=== PATIENT | female | born 1985 | race Caucasian/White ===

== ENCOUNTER 2019-01-05 14:46 | Emergency (ER) | payer BC ==
--- NOTE | 2019-01-05 15:15 | EDM.PDOC ---
ED HPI GENERAL MEDICAL PROBLEM - General Chief Complaint: Skin Complaint Stated Complaint: REACTION/SWELLING FROM MOSQUITO BITES Time Seen by Provider: 01/05/19 15:13 Source of Information: Reports: Patient - History of Present Illness INITIAL COMMENTS - FREE TEXT/NARRATIVE: HISTORY AND PHYSICAL: History of present illness: []Patient presents with multiple mosquito bites throughout the summer she is recently been on prednisone for itching and now is using Benadryl Lip swelling tongue swelling or oral pharyngeal edema no fever nausea vomiting chills sweats Review of systems: As per history of present illness and below otherwise all systems reviewed and negative. Past medical history: As per history of present illness and as reviewed below otherwise noncontributory. Surgical history: As per history of present illness and as reviewed below otherwise noncontributory. Social history: No reported history of drug or alcohol abuse. Family history: As per history of present illness and as reviewed below otherwise noncontributory. Physical exam: HEENT: Atraumatic, normocephalic, pupils reactive, negative for conjunctival pallor or scleral icterus, mucous membranes moist, throat clear, neck supple, nontender, trachea midline. Lungs: Clear to auscultation, breath sounds equal bilaterally, chest nontender. Heart: S1S2, regular, negative for clicks, rubs, or JVD. Abdomen: Soft, nondistended, nontender. Negative for masses or hepatosplenomegaly. Negative for costovertebral tenderness. Pelvis: Stable nontender. Genitourinary: Deferred. Rectal: Deferred. Extremities: Atraumatic, negative for cords or calf pain. Neurovascular unremarkable. Neuro: Awake, alert, oriented. Cranial nerves II through XII unremarkable. Cerebellum unremarkable. Motor and sensory unremarkable throughout. Exam nonfocal. Diagnostics: [Clinical ] Therapeutics: Benadryl Zantac ] did mention methods discussed long close, deet, spraying her yard etc. preventative methods Impression: [Mosquito bite ] Definitive disposition and diagnosis as appropriate pending reevaluation and review of above. - Related Data Allergies Allergy/AdvReac Type Severity Reaction Status Date / Time Penicillins Allergy Cannot Verified 07/04/14 07:28 Remember Home Meds: Home Meds . [No Known Home Meds] 07/04/14 [History] ED ROS GENERAL - Review of Systems Review Of Systems: See Below ED EXAM, SKIN/RASH Exam: See Below Departure - Departure Time of Disposition: 15:15 Disposition: Home, Self-Care 01 Condition: Good Clinical Impression: Mosquito bite - Discharge Information Referrals: Donna Kahn, [facility] [Primary Care Provider] - Additional Instructions: The following information is given to patients seen in the emergency department who are being discharged to home. This information is to outline your options for follow-up care. We provide all patients seen in our emergency department with a follow-up referral. The need for follow-up, as well as the timing and circumstances, are variable depending upon the specifics of your emergency department visit. If you don't have a primary care physician on staff, we will provide you with a referral. We always advise you to contact your personal physician following an emergency department visit to inform them of the circumstance of the visit and for follow-up with them and/or the need for any referrals to a consulting specialist. The emergency department will also refer you to a specialist when appropriate. This referral assures that you have the opportunity for follow-up care with a specialist. All of these measure are taken in an effort to provide you with optimal care, which includes your follow-up. Under all circumstances we always encourage you to contact your private physician who remains a resource for coordinating your care. When calling for follow-up care, please make the office aware that this follow-up is from your recent emergency room visit. If for any reason you are refused follow-up, please contact the [facility] emergency department at and asked to speak to the emergency department charge nurse.
[2019-01-05 17:05] VITALS: BP 119/71
== END 2019-01-05 15:30 | disposition home or self-care (01) ==
LOC: MW.ED 14:46
DX: S40.862A Insect bite (nonvenomous) of left upper arm, initial encounter (principal); S40.861A Insect bite (nonvenomous) of right upper arm, initial encounter; W57.XXXA Bitten or stung by nonvenomous insect and other nonvenomous arthropods, initial encounter
CPT/HCPCS: 99281

== ENCOUNTER 2021-10-15 15:51 | Emergency (ER) | payer BC, OTHER ==
[2021-10-15] MEDS ORDERED: Cyclobenzaprine 10 MG Tab PO ONE (17:51)
[2021-10-15] MEDS ORDERED: Ketorolac 30 MG/ML SDV IM STA (17:51)
[2021-10-15 18:09] VITALS: BP 114/74; PULSE 79
== END 2021-10-15 19:09 | disposition home or self-care (01) ==
LOC: MW.ED 15:51
DX: S39.012A Strain of muscle, fascia and tendon of lower back, initial encounter (principal); Z88.0 Allergy status to penicillin; Z91.040 Latex allergy status; Z79.899 Other long term (current) drug therapy; X50.1XXA Overexertion from prolonged static or awkward postures, initial encounter
CPT/HCPCS: 81003; 81025; 96372; 99283; A9270; J1885

== ENCOUNTER 2021-12-22 17:40 | Emergency (ER) | payer OTHER ==
[2021-12-22] MEDS ORDERED: Acetaminophen/HYDROcodone 325-5 MG Tab PO ONE (18:53)
[2021-12-22 20:50] VITALS: BP 123/72; PULSE 77
== END 2021-12-22 20:50 | disposition home or self-care (01) ==
LOC: MW.ED 17:40
DX: S93.401A Sprain of unspecified ligament of right ankle, initial encounter (principal); S76.912A Strain of unspecified muscles, fascia and tendons at thigh level, left thigh, initial encounter; F17.210 Nicotine dependence, cigarettes, uncomplicated; Z91.040 Latex allergy status; Z88.0 Allergy status to penicillin; X50.1XXA Overexertion from prolonged static or awkward postures, initial encounter
CPT/HCPCS: 73552; 73610; 99283; A9270

== ENCOUNTER 2022-04-03 12:54 | Emergency (ER) | payer OTHER ==
[2022-04-03 14:14] VITALS: BP 108/70; PULSE 84
== END 2022-04-03 14:14 | disposition home or self-care (01) ==
LOC: MW.ED 12:54
DX: N39.0 Urinary tract infection, site not specified (principal)
CPT/HCPCS: 81001; 81025; 87086; 87088; 87186; 99283

== ENCOUNTER 2023-05-24 19:20 | Emergency (ER) | payer OTHER ==
[2023-05-24] MEDS: Ketorolac 60 MG/2 ML SDV IM ONE (23:17)
[2023-05-24] MEDS: Lidocaine 4% 1 each Patch TOP PRN (23:18)
[2023-05-24] MEDS: Methocarbamol 750 MG TAB PO STA (23:33)
[2023-05-25 00:41] VITALS: BP 110/76; PULSE 72
== END 2023-05-25 00:40 | disposition home or self-care (01) ==
LOC: MW.ED 19:20
DX: M54.50 Low back pain, unspecified (principal); Z88.0 Allergy status to penicillin; Z91.040 Latex allergy status
CPT/HCPCS: 96372; 99283; A9270; J1885

== ENCOUNTER 2023-09-22 07:49 | Emergency (ER) | payer OTHER ==
[2023-09-22 08:17] VITALS: BP 114/78
[2023-09-22] MEDS: fentaNYL 50 MCG/ML SDV IM ONE (08:52)
[2023-09-22] MEDS: Ketorolac 30 MG/ML SDV IM ONE (08:53)
[2023-09-22 09:20] VITALS: PULSE 75
== END 2023-09-22 09:22 | disposition home or self-care (01) ==
LOC: MW.ED 07:49
DX: M54.50 Low back pain, unspecified (principal); G89.29 Other chronic pain; Z91.040 Latex allergy status; Z88.0 Allergy status to penicillin; Z79.899 Other long term (current) drug therapy; Z75.8 Other problems related to medical facilities and other health care
CPT/HCPCS: 96372; 99283; J1885; J3010

== ENCOUNTER 2024-02-07 16:54 | Emergency (ER) | payer BC ==
[2024-02-07] MEDS: Orphenadrine 60 MG/2 ML Inj IM ONE (17:39)
[2024-02-07] MEDS: fentaNYL 50 MCG/ML SDV IM ONE (17:43)
[2024-02-07] MEDS: Ketorolac 30 MG/ML SDV IM ONE (17:43)
[2024-02-07 18:37] VITALS: BP 124/74; PULSE 76
== END 2024-02-07 18:36 | disposition home or self-care (01) ==
LOC: MW.ED 16:54
DX: G89.29 Other chronic pain (principal); M54.50 Low back pain, unspecified; F17.210 Nicotine dependence, cigarettes, uncomplicated; Z79.899 Other long term (current) drug therapy; Z88.0 Allergy status to penicillin; Z91.040 Latex allergy status; Z88.8 Allergy status to other drugs, medicaments and biological substances; Z75.8 Other problems related to medical facilities and other health care
CPT/HCPCS: 96372; 99283; J1885; J2360; J3010

== ENCOUNTER 2024-11-12 22:19 | Emergency (ER) | payer BC ==
[2024-11-12] MEDS: Ketorolac 30 MG/ML SDV IM ONE (23:04)
[2024-11-12 23:12] VITALS: BP 118/74; PULSE 70
== END 2024-11-12 23:11 | disposition home or self-care (01) ==
LOC: MW.ED 22:19
DX: M54.50 Low back pain, unspecified (principal); Z91.040 Latex allergy status; Z88.0 Allergy status to penicillin; Z88.8 Allergy status to other drugs, medicaments and biological substances
CPT/HCPCS: 96372; 99282; J1885

== ENCOUNTER 2025-02-03 12:21 | Emergency (ER) | payer BC ==
[2025-02-03] MEDS: diphenhydrAMINE 50 MG/ML SDV IVPUSH ONE (13:42)
[2025-02-03] MEDS: Prochlorperazine 10 MG/2 ML SDV IVPUSH ONE (13:43)
[2025-02-03] MEDS: Ketorolac 30 MG/ML SDV IVPUSH ONE (14:59)
[2025-02-03 15:22] VITALS: BP 103/62; PULSE 85
== END 2025-02-03 15:20 | disposition home or self-care (01) ==
LOC: MW.ED 12:21
DX: G43.909 Migraine, unspecified, not intractable, without status migrainosus (principal); E86.0 Dehydration; F17.200 Nicotine dependence, unspecified, uncomplicated; Z88.0 Allergy status to penicillin; Z88.8 Allergy status to other drugs, medicaments and biological substances; Z91.040 Latex allergy status; Z79.899 Other long term (current) drug therapy; Z75.3 Unavailability and inaccessibility of health-care facilities
CPT/HCPCS: 70450; 96361; 96374; 99284; J0780; J1100; J1200; J1885; J7030; 99283